=== PATIENT | female | born 1985 | race Asian ===

== ENCOUNTER 2022-10-20 12:55 | Emergency (ER) | payer OTHER, SELFPAY ==
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
[2022-10-20 13:09] VITALS: BP 139/83; PULSE 73; RESP 16; TEMP 36.5; O2SAT 99; BMI 21.5
[2022-10-20] MEDS: Cyclobenzaprine HCl 5 MG TABLET PO (14:03)
[2022-10-20] MEDS: Ibuprofen 600 MG TABLET PO (14:03)
[2022-10-20] MEDS: Lidocaine 4 % Patch ADH..PATCH 1 PATCH TRANSDERMA (14:03)
== END 2022-10-20 15:42 | disposition home or self-care (01) ==
PROVIDERS: Emergency Provider Emergency Medicine
DX: S16.1XXA Strain of muscle, fascia and tendon at neck level, initial encounter (principal); S13.4XXA Sprain of ligaments of cervical spine, initial encounter; V49.88XA Car occupant (driver) (passenger) injured in other specified transport accidents, initial encounter; Y93.89 Activity, other specified; Y92.410 Unspecified street and highway as the place of occurrence of the external cause; Y99.8 Other external cause status
CPT/HCPCS: 99283; 99284